=== PATIENT | female | born 1990 | race Caucasian/White ===

== ENCOUNTER 2020-12-29 05:51 | Emergency (ER) | payer OTHER ==
[2020-12-29 06:37] LABS: HEMOGLOBIN 15.9 gm/dl (12.3-15.3); RED BLOOD COUNT 5.04 M/UL (4.00-5.10); WHITE BLOOD COUNT 14.1 K/UL (4.5-11.0)
[2020-12-29 07:11] LABS: BUN/CREATININE RATIO 31 (0-10)
[2020-12-29] MEDS ORDERED: CEFUROXIME500 MG PO (11:41)
[2020-12-29] MEDS ORDERED: COLACE 100MG C100 MG PO (11:41)
[2020-12-29] MEDS ORDERED: ONDANSETRON ODT4 MG SL (11:41)
[2020-12-29] MEDS ORDERED: PROTONIX 40 MG40 M1 PO (11:41)
== END 2020-12-29 13:30 | disposition home or self-care (01) ==
LOC: ER1 05:51
PROVIDERS: Physician Assistant
DX: K29.70 Gastritis, unspecified, without bleeding (principal); N39.0 Urinary tract infection, site not specified; N83.201 Unspecified ovarian cyst, right side; D25.9 Leiomyoma of uterus, unspecified; K59.00 Constipation, unspecified; I73.9 Peripheral vascular disease, unspecified; F17.200 Nicotine dependence, unspecified, uncomplicated; Z86.19 Personal history of other infectious and parasitic diseases; Z79.899 Other long term (current) drug therapy
CPT/HCPCS: 80053; 81001; 83605; 83690; 84703; 85025; 87040; 87086; 96374; 96375; 99284; J0696; J1885; J2405; J7030; Q9967